=== PATIENT | male | born 1990 | race Caucasian/White ===

== ENCOUNTER 2017-05-20 09:23 | Emergency (ER) | payer MEDICAID, OTHER ==
--- NOTE | 2017-05-20 09:45 | Emergency Department Record ---
History of Present Illness - General Chief complaint: Pain Stated complaint: BROKEN RIBS Time Seen by Provider: 05/20/17 09:33 Source: Patient Mode of Arrival: Ambulatory Limitations: No limitations - History of Present Illness Initial comments: The patient is here due to R rib pain for 10 days. He fell on the R ribs after falling trying to climb onto his truck and injured his R ribs. He then saw his PCP the next day and was told he had 4 broken ribs. Now the pain is not better and he is out of pain medicines. MD Complaint: Other Onset/Timin -: Days(s) Location: Right Severity scale (1-10): 7 Quality: Aching Consistency: Constant Improves with: Rest - Related Data Home Medications Medication Instructions Recorded Confirmed Last Taken Alprazolam [Xanax] 0.5 mg PO BID PRN 05/20/17 05/20/17 1 Day Ago ~05/19/17 Escitalopram Oxalate [Lexapro] 20 mg PO DAILY 05/20/17 05/20/17 1 Day Ago ~05/19/17 Hydrocodone/Acetaminophen [[place] 1 tab PO Q8H PRN 05/20/17 05/20/17 3 Days Ago 5mg/325mg] ~05/17/17 Ibuprofen 400 mg PO TID 05/20/17 05/20/17 1 Day Ago ~05/19/17 Trazodone HCl 100 mg PO QHS 05/20/17 05/20/17 1 Day Ago ~05/19/17 Previous Rx's Medication Instructions Recorded Naproxen [Naprosyn] 500 mg PO BID #14 tablet. 05/20/17 Allergies Allergy/AdvReac Type Severity Reaction Status Date / Time amoxicillin Allergy HIVES Verified 05/20/17 09:37 Penicillins Allergy SWELLING Verified 05/20/17 09:37 (GENERAL) Travel Screening - Travel/Exposure Within Last 30 Days Have you traveled within the last 30 days?: No - Travel/Exposure Within Last Year Have you traveled outside the [place] in the last year?: No - Additonal Travel Details Have you been exposed to anyone with a communicable illness?: No - Travel Symptoms Symptom Screening: None Review of Systems Constitutional: Denies: Chills, Fever Eyes: Denies: Eye discharge ENT: Denies: Congestion Respiratory: Denies: Cough, Dyspnea Past Medical History - SOCIAL HISTORY Smoking Status: Current every day smoker Alcohol Use: None Drug Use: None - RESPIRATORY Hx Asthma: Yes - CARDIOVASCULAR Hx Hypertension: Yes - NEURO Hx Seizures: Yes (pre-mature at , out grown) - GI Hx GI Disorders: No - Hx Genitourinary Disorders: No - ENDOCRINE Hx Diabetes: No Hx Thyroid Disease: No - MUSCULOSKELETAL Hx Musculoskeletal Disorders: No - PSYCH Hx Anxiety: Yes Hx Depression: Yes Comment:: bi-polar - HEMATOLOGY/ONCOLOGY Hx Hematology/Oncology Disorders: No Family Medical History Any Significant Family History?: Yes Physical Exam - General General Appearance: Alert, Oriented x3, Cooperative, No acute distress - Head Head exam: Atraumatic, Normocephalic, Normal inspection - Eye Eye exam: Normal appearance, PERRL - Neck Neck exam: Normal inspection, Full ROM. negative: Tenderness - Respiratory Respiratory exam: Normal lung sounds bilaterally, Chest wall tenderness (There is reproducible R rib pain.). negative: Respiratory distress - Cardiovascular Cardiovascular Exam: Regular rate, Normal rhythm, Normal heart sounds - GI/Abdominal GI/Abdominal exam: Soft, Normal bowel sounds. negative: Tenderness - Extremities Extremities exam: Normal inspection, Full ROM, Normal capillary refill. negative: Tenderness Image of Full Body: 1 - Area of pain and tenderness. Course Vital Signs 05/20/17 09:26 Temperature 98.4 F Pulse Rate 112 H Respiratory 16 Rate Blood Pressure 148/108 Pulse Ox 98 - Reevaluation(s) Reevaluation #1: The patient is resting comfortably and I did discuss the neg xrays with him. He is to take Naprosyn for pain and see his PCP next week if not better. 05/20/17 10:33 Medical Decision Making - Data Complexity MDM Data: X-Ray Ordered and/or Reviewed - Radiology Data Radiology results: Report reviewed (R ribs: Neg per Rad.) Disposition Disposition: Discharge Clinical Impression: Rib contusion Qualifiers: Encounter type: initial encounter Laterality: right Qualified Code(s): S20.211A - Contusion of right front wall of thorax, initial encounter Disposition: Home, Self-Care Condition: (2) Stable Instructions: Rib Contusion (ED) Additional Instructions: Please take the Naprosyn for pain and see your PCP if not better in 3 days. Prescriptions: Naproxen [Naprosyn] 500 mg PO BID #14 tablet.dr Forms: Patient Portal Access Time of Disposition: 10:34 Quality - Quality Measures Quality Measures: N/A - Blood Pressure Screening View Details: Yes Does Patient Have Any of the Following: No Blood Pressure Classification: Hypertensive Reading Systolic Measurement: 148 Diastolic Measurement: 108 Screening for High Blood Pressure: < Pre-Hypertensive BP, F/U Documented > [ G8950] Pre-Hypertensive Follow-up Interventions: Referral to alternative/primary care provider.
--- NOTE | 2017-05-21 07:22 | RADIOLOGY REPORT ---
EXAM: CHEST AND RIGHT RIBS HISTORY: FELL LAST WEEK, PAIN IN THE LATERAL UPPER RIGHT RIBS. TECHNIQUE: Five views of the chest and right ribs were obtained. Comparison: None. FINDINGS: CHEST: The heart is not enlarged and there is no mediastinal mass. No infiltrate or vascular congestion. RIGHT RIBS: No fracture or osseous abnormality. IMPRESSION: 1. UNREMARKABLE CHEST. 2. UNREMARKABLE RIGHT RIBS. JOB NUMBER: [id number] MTDD
== END 2017-05-20 10:48 | disposition home or self-care (01) ==
LOC: ER 09:23
DX: S20.211A Contusion of right front wall of thorax, initial encounter (principal); W19.XXXA Unspecified fall, initial encounter
CPT/HCPCS: 99283

== ENCOUNTER 2018-06-21 21:09 | Emergency (ER) | payer MEDICAID ==
--- NOTE | 2018-06-21 21:38 | Emergency Department Record ---
History of Present Illness - General Chief complaint: Extremity Problem Stated complaint: RT WRIST INJURY Time Seen by Provider: 06/21/18 21:25 Source: Patient Mode of Arrival: Ambulatory Limitations: No limitations - History of Present Illness Initial comments: pt slipped on wood floor injuring r wrist 3 hrs ago. Complaint: Extremity pain, Extremity swelling, Joint pain, Joint swelling Onset/Timin -: Hour(s) Location: Right, Forearm History of Same: No Quality: Aching Consistency: Constant Improves with: Cold therapy, Medication Worsens with: Exertion, Palpation Associated Symptoms: Denies other symptoms - Related Data Home Medications Medication Instructions Recorded Confirmed Last Taken Lorazepam [Ativan] 0.5 mg PO ASDIR 06/21/18 06/21/18 Unknown Previous Rx's Medication Instructions Recorded Hydrocodone/Acetaminophen [[place] 1 each PO Q6HR #7 tablet 06/21/18 5-325 Tablet] Allergies Allergy/AdvReac Type Severity Reaction Status Date / Time amoxicillin Allergy HIVES Verified 06/21/18 21:21 Penicillins Allergy SWELLING Verified 06/21/18 21:21 (GENERAL) Travel Screening - Travel/Exposure Within Last 30 Days Have you traveled within the last 30 days?: No - Travel/Exposure Within Last Year Have you traveled outside the [place] in the last year?: No - Additonal Travel Details Have you been exposed to anyone with a communicable illness?: No - Travel Symptoms Symptom Screening: None Review of Systems Reviewed: No additional complaints except as noted below Constitutional: Reports: As per HPI. Denies: Chills, Fever, Malaise, Night sweats, Weakness, Weight change Eyes: Reports: As per HPI. Denies: Eye discharge, Eye pain, Photophobia, Vision change ENT: Reports: As per HPI. Denies: Congestion, Dental pain, Ear pain, Epistaxis , Hearing loss, Throat pain Respiratory: Reports: As per HPI. Denies: Cough, Dyspnea, Hemoptysis, Stridor, Wheezes Cardiovascular: Reports: As per HPI. Denies: Arrhythmia, Chest pain, Dyspnea on exertion, Edema, Murmurs, Orthopnea, Palpitations, Paroxysmal nocturnal dyspnea, Rheumatic Fever, Syncope Endocrine: Reports: As per HPI. Denies: Fatigue, Heat or cold intolerance, Polydipsia, Polyuria Gastrointestinal: Reports: As per HPI. Denies: Abdominal pain, Constipation, Diarrhea, Hematemesis, Hematochezia, Melena, Nausea, Vomiting Genitourinary: Reports: As per HPI. Denies: Dysuria, Frequency, Hematuria, Incontinence, Retention, Testicular pain, Testicular mass, Urgency Musculoskeletal: Reports: As per HPI. Denies: Arthralgia, Back pain, Gout, Joint swelling, Myalgia, Neck pain Skin: Reports: As per HPI. Denies: Bruising, Change in color, Change in hair/ nails, Lesions, Pruritus, Rash Neurological: Reports: As per HPI. Denies: Abnormal gait, Confusion, Headache, Numbness, Paresthesias, Seizure, Tingling, Tremors, Vertigo, Weakness Psychiatric: Reports: As per HPI. Denies: Anxiety, Auditory hallucinations, Depression, Homicidal thoughts, Suicidal thoughts, Visual hallucinations Hematological/Lymphatic: Reports: As per HPI. Denies: Anemia, Blood Clots, Easy bleeding, Easy bruising, Swollen glands Past Medical History - SOCIAL HISTORY Smoking Status: Current every day smoker Alcohol Use: Occasional Drug Use: None - RESPIRATORY Hx Respiratory Disorders: Yes Hx Asthma: Yes - CARDIOVASCULAR Hx Cardio Disorders: Yes Hx Hypertension: Yes - NEURO Hx Neuro Disorders: Yes Hx Seizures: Yes (pre-mature at , out grown) - GI Hx GI Disorders: No - Hx Genitourinary Disorders: No - ENDOCRINE Hx Diabetes: No Hx Thyroid Disease: No - MUSCULOSKELETAL Hx Musculoskeletal Disorders: No - PSYCH Hx Anxiety: Yes Hx Depression: Yes Comment:: bi-polar - HEMATOLOGY/ONCOLOGY Hx Hematology/Oncology Disorders: No Family Medical History Any Significant Family History?: No Physical Exam - General General Appearance: Alert, Oriented x3, Cooperative, Mild distress - Head Head exam: Normal inspection - Eye Eye exam: Normal appearance, PERRL, EOMI Pupils: Normal accommodation - ENT ENT exam: Normal exam, Mucous membranes moist, Normal external ear exam, Normal orophraynx Ear exam: Normal external inspection. negative: External canal tenderness Nasal Exam: Normal inspection. negative: Discharge, Sinus tenderness Mouth exam: Normal external inspection, Tongue normal Teeth exam: Normal inspection. negative: Dental caries Throat exam: Normal inspection. negative: Tonsillar erythema, Tonsillar exudate - Neck Neck exam: Normal inspection, Full ROM. negative: Tenderness - Respiratory Respiratory exam: negative: Respiratory distress - Cardiovascular Cardiovascular Exam: Regular rate - GI/Abdominal GI/Abdominal exam: Soft, Normal bowel sounds. negative: Tenderness - Rectal Rectal exam: Deferred - exam: Deferred - Extremities Extremities exam: Normal inspection, Normal capillary refill, Tenderness (r wrist. no snuffbox tenderness). negative: Full ROM - Back Back exam: Reports: Normal inspection, Full ROM. Denies: Muscle spasm, Rash noted, Tenderness - Neurological Neurological exam: Alert, CN II-XII intact, Normal gait, Oriented X3 - Psychiatric Psychiatric exam: Normal affect, Normal mood - Skin Skin exam: Dry, Intact, Normal color, Warm Course Vital Signs 06/21/18 21:15 Temperature 98.8 F Pulse Rate 111 H Respiratory 18 Rate Blood Pressure 155/107 Pulse Ox 97 - Reevaluation(s) Reevaluation #1: 06/21/18 22:28 xrays show ulnar styloid fx. there was question of a line on navicular but pt has no snuffbox tenderness Disposition Disposition: Discharge Clinical Impression: Fracture of ulnar styloid Qualifiers: Encounter type: initial encounter Fracture type: closed Fracture alignment: displaced Laterality: right Qualified Code(s): S52.611A - Displaced fracture of right ulna styloid process, initial encounter for closed fracture Disposition: Home, Self-Care Condition: (1) Good Instructions: Wrist Fracture in Adults (ED) Additional Instructions: follow up with family doctor. return sooner if worse. ice and elevate. motrin for pain with food Prescriptions: Hydrocodone/Acetaminophen [[place] 5-325 Tablet] 1 each PO Q6HR #7 tablet Forms: Patient Portal Access Quality - Quality Measures Quality Measures: N/A - Blood Pressure Screening Does Patient Have Any of the Following: No Blood Pressure Classification: Hypertensive Reading Systolic Measurement: 155 Diastolic Measurement: 107 Screening for High Blood Pressure: < First Hypertensive BP, F/U Documented > [ G8950] First Hypertensive Follow-up Interventions: Follow-up with rescreen GT 1 day and LT 4 weeks.
[2018-06-21] MEDS ORDERED: HYDROCODONE/APAP 5/325MG TABLET PO ONE (22:25)
--- NOTE | 2018-06-23 19:14 | RADIOLOGY REPORT ---
EXAM: WRIST, RIGHT 3 VIEWS HISTORY: FALL WITH WRIST PAIN AND SWELLING. TECHNIQUE: Four views of the right wrist. COMPARISON: Right wrist radiographs 04/19/2010. FINDINGS: There is an acute minimally displaced fracture involving the base of the ulnar styloid. There is a questionable subtle transverse lucency involving the waist of the scaphoid on the oblique view, not clearly seen on additional views. No definite cortical stepoff. Wrist soft tissue swelling. Carpal bone alignment appears maintained. IMPRESSION: 1. MINIMALLY DISPLACED ACUTE ULNAR STYLOID FRACTURE. 2. QUESTIONABLE SUBTLE LUCENCY INVOLVING THE WAIST OF THE SCAPHOID, ONLY SEEN ON ONE VIEW. RECOMMEND CORRELATION WITH SNUFF BOX TENDERNESS FOR POSSIBLE NONDISPLACED SCAPHOID FRACTURE. [facility]BER: [id number] [facility]
== END 2018-06-21 22:48 | disposition home or self-care (01) ==
LOC: ER 21:09
DX: S52.611A Displaced fracture of right ulna styloid process, initial encounter for closed fracture (principal); W01.0XXA Fall on same level from slipping, tripping and stumbling without subsequent striking against object, initial encounter; I10 Essential (primary) hypertension; F17.210 Nicotine dependence, cigarettes, uncomplicated
CPT/HCPCS: 99283